=== PATIENT | male | born 1975 | race Caucasian/White ===

== ENCOUNTER 2018-03-13 14:56 | Inpatient (IN) | payer OTHER ==
--- NOTE | 2018-03-13 15:08 | PDOC ---
Rapid Medical Evaluation Time Seen by Provider: 03/13/18 15:02 Medical Evaluation: 03/13/18 15:05 I have performed a brief in-person evaluation of this patient. The patient presents with a chief complaint of: abdominal pain with vomiting x 2 days. Denies diarrhea at present Pertinent physical exam findings are: NAD even and unlabored breathing +right lower quadrant tenderness I have ordered the following: labs The patient will proceed o the Ed for further evaluation. Discharge Disposition - Referrals Referrals: Tung Whitlock MD [Primary Care Provider] - - Patient Instructions - Post Discharge Activity
--- NOTE | 2018-03-13 16:30 | PDOC ---
History of Present Illness - General Chief Complaint: Pain, Acute Stated Complaint: ABD PAIN/SENT BY PCP Time Seen by Provider: 03/13/18 15:02 History Source: Patient Exam Limitations: No Limitations - History of Present Illness Initial Comments: 03/13/18 16:30 CHIEF COMPLAINT: Abdominal pain HISTORY OF PRESENT ILLNESS: This is a 42-year-old male with NIDDM, HTN, and hypercholesterolemia who presents for evaluation of 2 days of abdominal pain. He reports that the pain has been constant and worsening. Today, he had 3 episodes of diarrhea. Denies nausea/vomiting, fevers/chills, dysuria, or any other symptoms. He was seen by his PCP today who sent him to the ED for further evaluation. Vital signs on arrival are notable only for pulse of 94. PCP: Dr. Whitlock REVIEW OF SYSTEMS: GENERAL/CONSTITUTIONAL: No fever or chills. No weakness. No weight change. HEAD, EYES, EARS, NOSE AND THROAT: No change in vision. No ear pain or discharge. No sore throat. CARDIOVASCULAR: No chest pain or palpitations. RESPIRATORY: No cough, wheezing, or shortness of breath. GASTROINTESTINAL: See HPI. GENITOURINARY: No dysuria, frequency, or change in urination. MUSCULOSKELETAL: No joint or muscle swelling or pain. No neck or back pain. SKIN: No rash or easy bruising. NEUROLOGIC: No headache, vertigo, loss of consciousness, or loss of sensation. PSYCHIATRIC: No depression or anxiety. ENDOCRINE: No increased thirst. No abnormal weight change. HEMATOLOGIC/LYMPHATIC: No anemia, easy bleeding, or history of blood clots. ALLERGIC/IMMUNOLOGIC: No hives or skin allergy. No latex allergy. PHYSICAL EXAM: GENERAL: The patient is awake, alert, and fully oriented, in no acute distress. HEAD: Normal with no signs of trauma. ENT: Pupils equal, round and reactive to light, extraocular movements intact, sclera anicteric, conjunctiva clear. Neck supple. LUNGS: Clear to auscultation bilaterally. Normal excursion. No respiratory distress or use of accessory muscles. CV: RRR, S1/S2, no MRG. Cap refill < 2 sec. ABDOMEN: Soft, non-distended, diffusely tender to palpation but exquisitely tender in RLQ. EXTREMITIES: Normal range of motion, no edema. NEUROLOGICAL: Normal speech, normal gait. CN II-XII grossly intact. PSYCH: Normal mood, normal affect. SKIN: Warm, moist, normal turgor, no rashes or lesions noted. Past History - Past Medical History Allergies/Adverse Reactions: Allergies Allergy/AdvReac Type Severity Reaction Status Date / Time No Known Allergies Allergy Verified 03/13/18 15:04 Home Medications: Ambulatory Orders Aspirin 81 mg PO DAILY 03/13/18 Atorvastatin Ca [Lipitor] 20 mg PO HS 03/13/18 Canagliflozin [Invokana] 300 mg PO ASDIR 03/13/18 Enalapril Maleate 2.5 mg PO DAILY 03/13/18 Metformin HCl [Metformin HCl ER] 1,000 mg PO BID 03/13/18 Pantoprazole Sodium [Protonix -] 40 mg PO DAILY 03/13/18 Sildenafil Citrate [Sildenafil] 20 mg PO ASDIR 03/13/18 Sitagliptin Phosphate [Januvia] 100 mg PO DAILY 03/13/18 COPD: No Diabetes: Yes HTN: Yes Hypercholesterolemia: Yes - Suicide/Smoking/Psychosocial Hx Smoking History: Current every day smoker Have you smoked in the past 12 months: Yes Information on smoking cessation initiated: No *Physical Exam - Vital Signs Last Vital Signs Temp Pulse Resp BP Pulse Ox 97.9 F 94 H 16 128/65 98 03/13/18 15:05 03/13/18 15:05 03/13/18 15:05 03/13/18 15:05 03/13/18 15:05 ED Treatment Course - LABORATORY CBC & Chemistry Diagram: 03/13/18 16:21 03/13/18 16:21 Medical Decision Making - Medical Decision Making 03/13/18 16:50 A/P: 42-year-old male with RLQ abdominal pain and diarrhea. -Labs including CBC, CMP, lipase, UA -Morphine 4mg IVP for pain -Zofran 4mg IVP -CTAP PO/IV contrast r/o appendicitis 03/13/18 16:53 WBC 11.0 03/13/18 18:01 Patient re-evaluated and still with significant pain. Will give additional 2mg morphine. CT @ 7pm. Will sign out to MECHE Arenas to follow up. *DC/Admit/Observation/Transfer - Referrals Referrals: Tung Whitlock MD [Primary Care Provider] - - Patient Instructions - Post Discharge Activity
[2018-03-13 16:35] LABS: BASO % 0.5 % (0-2.0); EOS % 1.7 % (0-4.5); HEMATOCRIT 51.4 % (35.4-49); HEMOGLOBIN 17.5 GM/dL (11.7-16.9); LYMPH % 14.3 % (8-40); MEAN PLT VOLUME 10.3 fl (7.5-11.1); MONO % 5.2 % (3.8-10.2); NEUT % 78.3 % (42.8-82.8); PLATELET COUNT 217 K/MM3 (134-434); RBC 5.65 M/mm3 (4.00-5.60)
[2018-03-13] MEDS ORDERED: ONDANSETRON 4 MG/2 ML VIAL IVPUSH ONE (16:37)
[2018-03-13] MEDS ORDERED: morphine CARPU-JECT 4 MG/1 ML DISP.SYRIN IVPUSH ONE (16:37)
[2018-03-13] MEDS ORDERED: ONDANSETRON 4 MG/2 ML VIAL ONE (16:43)
[2018-03-13] MEDS ORDERED: MORPHINE SULFATE 10 MG/1 ML *VIAL ONE (16:45)
[2018-03-13] MEDS: SODIUM CHLORIDE 1,000 ML IV SCH (16:47)
[2018-03-13 16:55] LABS: INR 1.05 (0.83-1.09); PROTHROMBIN TIME (PATIENT) 11.9 SEC (9.7-13.0)
[2018-03-13 16:58] LABS: ACTIVATED PTT 30.3 SECONDS (25.2-36.5)
[2018-03-13 17:04] LABS: ALBUMIN 4.1 g/dl (3.4-5.0); ALK PHOS 69 U/L (45-117); AMYLASE 87 U/L (25-115); ANION GAP 10 MMOL/L (8-16); BLOOD UREA NITROGEN 16 mg/dL (7-18); CALCIUM 9.1 mg/dL (8.5-10.1); CHLORIDE 105 mmol/L (98-107); CO2 23 mmol/L (21-32); CREATININE 0.6 mg/dL (0.7-1.3); GLUCOSE,RANDOM 133 mg/dL (74-106); POTASSIUM 4.4 mmol/L (3.5-5.1); SGOT/AST 10 U/L (15-37); SGPT/ALT 18 U/L (12-78); SODIUM 138 mmol/L (136-145); TOT PROT 8.1 g/dl (6.4-8.2)
[2018-03-13 17:10] LABS: LIPASE 344 U/L (73-393)
[2018-03-13] MEDS ORDERED: morphine CARPU-JECT 2 MG/1 ML DISP.SYRIN IVPUSH ONE (18:01)
[2018-03-13] MEDS ORDERED: MORPHINE SULFATE 2 MG/ML VIAL ONE (18:14)
[2018-03-13 18:30] LABS: URINE APPEARANCE CLEAR; URINE BILIRUBIN NEGATIVE (<2.0 mg/dL); URINE COLOR STRAW; URINE GLUCOSE (UA) 3+ (NEGATIVE); URINE KETONE NEGATIVE (NEGATIVE); URINE LEUK ESTERASE NEGATIVE (NEGATIVE); URINE NITRITE NEGATIVE (NEGATIVE); URINE PROTEIN NEGATIVE (NEGATIVE); URINE UROBILINOGEN NEGATIVE mg/dL (0.2-1.0)
--- NOTE | 2018-03-13 19:29 | PDOC ---
*Physical Exam - Vital Signs Last Vital Signs Temp Pulse Resp BP Pulse Ox 97.9 F 94 H 16 128/65 98 03/13/18 15:05 03/13/18 15:05 03/13/18 15:05 03/13/18 15:05 03/13/18 15:05 - Physical Exam Gastrointestinal/Abdominal: positive: Tender (diffusely tender worse in RLQ), Guarding (RLQ) ED Treatment Course - LABORATORY CBC & Chemistry Diagram: 03/13/18 16:21 03/13/18 16:21 - ADDITIONAL ORDERS Additional order review: Laboratory Results 03/13/18 03/13/18 03/13/18 18:13 16:21 16:21 PT with INR 11.90 INR 1.05 PTT (Actin FS) 30.3 Sodium 138 Potassium 4.4 Chloride 105 Carbon Dioxide 23 Anion Gap 10 BUN 16 Creatinine 0.6 L Creat Clearance w eGFR > 60 Random Glucose 133 H Calcium 9.1 Total Bilirubin 1.0 AST 10 L ALT 18 Alkaline Phosphatase 69 Total Protein 8.1 Albumin 4.1 Total Amylase 87 Lipase 344 Urine Color Straw Urine Appearance Clear Urine pH 5.0 Ur Specific Marshall 1.021 Urine Protein Negative Urine Glucose (UA) 3+ H Urine Ketones Negative Urine Blood Negative Urine Nitrite Negative Urine Bilirubin Negative Urine Urobilinogen Negative Ur Leukocyte Esterase Negative 03/13/18 16:21 RBC 5.65 H MCV 91.0 MCHC 34.0 RDW 13.0 MPV 10.3 Neutrophils % 78.3 Lymphocytes % 14.3 Monocytes % 5.2 Eosinophils % 1.7 Basophils % 0.5 - Medications Given in the ED: ED Medications Discontinued Medications Generic Name Dose Route Start Last Admin Trade Name Brianda PRN Reason Stop Dose Admin Morphine Sulfate 4 mg 03/13/18 16:37 03/13/18 16:47 Morphine Injection - IVPUSH 03/13/18 16:38 4 mg ONCE ONE Administration Morphine Sulfate 2 mg 03/13/18 18:01 03/13/18 18:15 Morphine Injection - IVPUSH 03/13/18 18:02 2 mg ONCE ONE Administration Ondansetron HCl 4 mg 03/13/18 16:37 03/13/18 16:47 Zofran Injection IVPUSH 03/13/18 16:38 4 mg ONCE ONE Administration Progress Note - Progress Note Progress Note: Received signout from Nurse Practitioner Zakiya. Briefly this is a 42-year-old male past history of NIDDM, hypertension and hyperlipidemia who presents emergency department 2 days of abdominal pain. Patient was seen by his PMD today and was sent to the emergency department for further evaluation. Laboratory testing significant for elevated WBC of 11,000. Patient is ordered for CTAP with by mouth and IV contrast to rule out appendicitis. Dispo pending results of CAT scan. Medical Decision Making - Medical Decision Making 03/13/18 20:01 CT of abdomen and pelvis as read by Dr. Dai: There is a thick walled tubular structure within the right lower quadrant consistent with an inflamed appendix. There is a mild degree of inflammatory stranding in the adjacent mesenteric fat. This consistent with acute appendicitis. No abscesses associated with this process. I paged Dr. Pedersen of surgery for consult. Blood cultures, ceftriaxone 1 g, Flagyl 500 mg. Admit to [facility]. Case discussed with Dr. Pedersen who will perform the surgery in the morning. Patient is nothing by mouth. Results discussed with patient who verbalizes understanding of need for nothing by mouth, hospitalization and IV antibiotics. 6 plan to the patient that Dr. Pedersen will visit the patient in the morning with the plan of performing surgery. Patient is in agreement with admission for IV antibiotic overnight and pending surgery. 03/13/18 20:11 Case d/w [employer] [facility] who accepts pt for admission under MD Ernst. *DC/Admit/Observation/Transfer Diagnosis at time of Disposition: Appendicitis Qualifiers: Appendicitis type: acute appendicitis Acute appendicitis type: unspecified acute appendicitis type Qualified Code(s): K35.80 - Unspecified acute appendicitis - Discharge Dispostion Condition at time of disposition: Fair Decision to Admit order: Yes - Referrals Referrals: Tung Whitlock MD [Primary Care Provider] - - Patient Instructions - Post Discharge Activity
[2018-03-13] MEDS ORDERED: CEFTRIAXONE 1,000 MG in DEXTROSE 5%-WATER - 50 ML IVPB ONE (19:55)
[2018-03-13] MEDS ORDERED: SODIUM CHLORIDE 1,000 ML IV SCH (20:15)
[2018-03-13] MEDS ORDERED: CEFTRIAXONE 1 GM/50 ML BAG ONE (20:19)
[2018-03-13] MEDS ORDERED: MORPHINE SULFATE 2 MG/ML VIAL IVPUSH PRN (20:43)
[2018-03-13] MEDS ORDERED: ONDANSETRON 4 MG/2 ML VIAL IVPUSH PRN (20:44)
[2018-03-13] MEDS ORDERED: DEXTROSE 5%-0.45% SALINE 1,000 ML IV SCH (20:45)
--- NOTE | 2018-03-13 20:51 | HP ---
CHIEF COMPLAINT: Abdominal Pain PCP: Dr. Whitlock HISTORY OF PRESENT ILLNESS: 42 y/o man with a pMHx of NIDDM, HTN, HLD. Who presents to the ED from his PMDs office for abdominal pain x 2days, with an episode of non-bilious vomiting x today. Patient endorses having generalized abdominal pain which became worse in intensity, he reports having soup earlier today and while at his doctor's office he had an episode of vomiting. Patient denies fever, chills, cough, dizziness, CP, palpitations diarrhea, heamtochezia, constipation, melena, dysuria. ER course was notable for: (1) CTAP- acute appendicitis (2) WBC 11.0 (3) Recent Travel: None PAST MEDICAL HISTORY: See HPI PAST SURGICAL HISTORY: None Social History: Smoking: None Alcohol: None Drugs: None Lives with family Family History: Father: DM Allergies No Known Allergies Allergy (Verified 03/13/18 15:04) HOME MEDICATIONS: Home Medications Medication Instructions Recorded Aspirin 81 mg PO DAILY 03/13/18 Atorvastatin Ca [Lipitor] 20 mg PO HS 03/13/18 Canagliflozin [Invokana] 300 mg PO ASDIR 03/13/18 Enalapril Maleate 2.5 mg PO DAILY 03/13/18 Metformin HCl [Metformin HCl ER] 1,000 mg PO BID 03/13/18 Pantoprazole Sodium [Protonix -] 40 mg PO DAILY 03/13/18 Sildenafil Citrate [Sildenafil] 20 mg PO ASDIR 03/13/18 Sitagliptin Phosphate [Januvia] 100 mg PO DAILY 03/13/18 REVIEW OF SYSTEMS CONSTITUTIONAL: loss of appetite Absent: fever, chills, diaphoresis, generalized weakness, malaise, weight change HEENT: Absent: rhinorrhea, nasal congestion, throat pain, throat swelling, difficulty swallowing, mouth swelling, ear pain, eye pain, visual changes CARDIOVASCULAR: Absent: chest pain, syncope, palpitations, irregular heart rate, lightheadedness , peripheral edema RESPIRATORY: Absent: cough, shortness of breath, dyspnea with exertion, orthopnea, wheezing, stridor, hemoptysis GASTROINTESTINAL: abdominal pain, nausea, vomiting Absent: abdominal distension, diarrhea, constipation, melena, hematochezia GENITOURINARY: Absent: dysuria, frequency, urgency, hesitancy, hematuria, flank pain, genital pain MUSCULOSKELETAL: Absent: myalgia, arthralgia, joint swelling, back pain, neck pain SKIN: Absent: rash, itching, pallor HEMATOLOGIC/IMMUNOLOGIC: Absent: easy bleeding, easy bruising, lymphadenopathy, frequent infections ENDOCRINE: Absent: unexplained weight gain, unexplained weight loss, heat intolerance, cold intolerance NEUROLOGIC: Absent: headache, focal weakness or paresthesias, dizziness, unsteady gait, seizure, mental status changes, bladder or bowel incontinence PSYCHIATRIC: Absent: anxiety, depression, suicidal or homicidal ideation, hallucinations. PHYSICAL EXAMINATION Vital Signs - 24 hr 03/13/18 15:05 Temperature 97.9 F Pulse Rate 94 H Respiratory 16 Rate Blood Pressure 128/65 O2 Sat by Pulse 98 Oximetry (%) GENERAL: Awake, alert, and fully oriented, in no acute distress. HEAD: Normal with no signs of trauma. EYES: Pupils equal, round and reactive to light, extraocular movements intact, sclera anicteric, conjunctiva clear. No lid lag. EARS, NOSE, THROAT: Ears normal, nares patent, oropharynx clear without exudates. Dry mucous membranes. NECK: Normal range of motion, supple without lymphadenopathy, JVD, or masses. LUNGS: Breath sounds equal, clear to auscultation bilaterally. No wheezes, and no crackles. No accessory muscle use. HEART: Regular rate and rhythm, normal S1 and S2 without murmur, rub or gallop. ABDOMEN: Soft, not distended, no guarding, no masses. No hepatomegaly or splenomegaly. generalized tenderness, hypoactive bowel sounds, rebound tenderness MUSCULOSKELETAL: Normal range of motion at all joints. No bony deformities or tenderness. No CVA tenderness. UPPER EXTREMITIES: 2+ pulses, warm, well-perfused. No cyanosis. No clubbing. No peripheral edema. LOWER EXTREMITIES: 2+ pulses, warm, well-perfused. No calf tenderness. No peripheral edema. NEUROLOGICAL: Cranial nerves II-XII intact. Normal speech. Gait not observed PSYCHIATRIC: Cooperative. Good eye contact. Appropriate mood and affect. SKIN: Warm, dry, normal turgor, no rashes or lesions noted, normal capillary refill. Laboratory Results - last 24 hr 03/13/18 03/13/18 03/13/18 16:21 16:21 16:21 WBC 11.0 H RBC 5.65 H Hgb 17.5 H Hct 51.4 H MCV 91.0 MCH 31.0 MCHC 34.0 RDW 13.0 Plt Count 217 MPV 10.3 Absolute Neuts (auto) 8.7 H Neutrophils % 78.3 Lymphocytes % 14.3 Monocytes % 5.2 Eosinophils % 1.7 Basophils % 0.5 Nucleated RBC % 0 PT with INR 11.90 INR 1.05 PTT (Actin FS) 30.3 Sodium 138 Potassium 4.4 Chloride 105 Carbon Dioxide 23 Anion Gap 10 BUN 16 Creatinine 0.6 L Creat Clearance w eGFR > 60 Random Glucose 133 H Calcium 9.1 Total Bilirubin 1.0 AST 10 L ALT 18 Alkaline Phosphatase 69 Total Protein 8.1 Albumin 4.1 Total Amylase 87 Lipase 344 Urine Color Urine Appearance Urine pH Ur Specific [place] Urine Protein Urine Glucose (UA) Urine Ketones Urine Blood Urine Nitrite Urine Bilirubin Urine Urobilinogen Ur Leukocyte Esterase 03/13/18 18:13 WBC RBC Hgb Hct MCV MCH MCHC RDW Plt Count MPV Absolute Neuts (auto) Neutrophils % Lymphocytes % Monocytes % Eosinophils % Basophils % Nucleated RBC % PT with INR INR PTT (Actin FS) Sodium Potassium Chloride Carbon Dioxide Anion Gap BUN Creatinine Creat Clearance w eGFR Random Glucose Calcium Total Bilirubin AST ALT Alkaline Phosphatase Total Protein Albumin Total Amylase Lipase Urine Color Straw Urine Appearance Clear Urine pH 5.0 Ur Specific [place] 1.021 Urine Protein Negative Urine Glucose (UA) 3+ H Urine Ketones Negative Urine Blood Negative Urine Nitrite Negative Urine Bilirubin Negative Urine Urobilinogen Negative Ur Leukocyte Esterase Negative ASSESSMENT/PLAN: This is a 42 y/o man Admitted for Acute Appendicitis for further evaluation of their emergent condition. FEN - D51/2NS@100ml/hr - Replete lytes prn - NPO DVT ppx - OOB - SCDs Code Status: Full Code Dispo: Requires Inpatient Care Problem List - Problem (1) Appendicitis Assessment/Plan: - CTAP- Acute Appendicitis - +Luekocytosis - Appreciate Surgical consult-[facility] OR in am - Ceftriaxone/Metronidazole given in ED, will continue - NPO - Repeat CBC, BMP in am - IVF - Pain Mgmt- Morphine Sulfate prn - Zofran prn - Monitor vitals Code(s): K37 - UNSPECIFIED APPENDICITIS Qualifiers: Appendicitis type: acute appendicitis Acute appendicitis type: unspecified acute appendicitis type Qualified Code(s): K35.80 - Unspecified acute appendicitis (2) Diabetes mellitus Assessment/Plan: - stable - BGMs - Hold home meds- surgery tomorrow Code(s): E11.9 - TYPE 2 DIABETES MELLITUS WITHOUT COMPLICATIONS (3) Hypertension Assessment/Plan: - stable - Monitor BP - Hold meds tonight Code(s): I10 - ESSENTIAL (PRIMARY) HYPERTENSION (4) HLD (hyperlipidemia) Assessment/Plan: - Hold med tonight - Will resume when cleared by surgeon Code(s): E78.5 - HYPERLIPIDEMIA, UNSPECIFIED Visit type - Emergency Visit Emergency Visit: Yes ED Registration Date: 03/13/18 Care time: The patient presented to the Emergency Department on the above date and was hospitalized for further evaluation of their emergent condition. - New Patient This patient is new to me today: Yes Date on this admission: 03/13/18 - Critical Care Critical Care patient: No Hospitalist Screening - Colonoscopy Questionnaire Colonoscopy Questionnaire: Colonoscopy Questionnaire - Patient: 50 - 75 years old and never had a screening colonoscopy: No History of colon or rectal polyps, or CA: No History of IBD, Crohn's disease or UC: No History of abdominal radiation therapy as a child: No - Relative: 1 with colon or rectal CA, or polyps at age 60 or younger: No Colon or rectal CA diagnosed at age 45 or younger: No Multiple relatives with colon or rectal CA: No - Outcome: Screening Result: Negative Screen
--- NOTE | 2018-03-13 21:17 | CONSULT ---
Consult Consult Specialty:: Surgery Referred by:: Kamlesh Reason for Consultation:: Abdominal pain - History of Present Illness History of Present Illness: C/O Abdominal pain x 2days, with nausea, vomitind and diarrhea. Pain is exacerbated in the right lower quadrant. - History Source History Provided By: Patient - Smoking History Smoking history: Current every day smoker Have you smoked in the past 12 months: Yes Home Medications - Allergies Allergies/Adverse Reactions: Allergies Allergy/AdvReac Type Severity Reaction Status Date / Time No Known Allergies Allergy Verified 03/13/18 15:04 - Home Medications Home Medications: Ambulatory Orders Aspirin 81 mg PO DAILY 03/13/18 Atorvastatin Ca [Lipitor] 20 mg PO HS 03/13/18 Canagliflozin [Invokana] 300 mg PO ASDIR 03/13/18 Enalapril Maleate 2.5 mg PO DAILY 03/13/18 Metformin HCl [Metformin HCl ER] 1,000 mg PO BID 03/13/18 Pantoprazole Sodium [Protonix -] 40 mg PO DAILY 03/13/18 Sildenafil Citrate [Sildenafil] 20 mg PO ASDIR 03/13/18 Sitagliptin Phosphate [Januvia] 100 mg PO DAILY 03/13/18 Physical Exam Vital Signs: Vital Signs Temperature 97.9 F 03/13/18 15:05 Pulse Rate 94 H 03/13/18 15:05 Respiratory Rate 16 03/13/18 15:05 Blood Pressure 128/65 03/13/18 15:05 O2 Sat by Pulse Oximetry (%) 98 03/13/18 15:05 Gastrointestinal: Yes: Tenderness (Tender in right lower quadrant of abdomenm) Labs: CBC, BMP 03/13/18 16:21 03/13/18 16:21 Imaging - Results Cat Scan: Report Reviewed, Image Reviewed Problem List - Problems (1) Acute appendicitis Code(s): K35.80 - UNSPECIFIED ACUTE APPENDICITIS (2) Diabetes mellitus type 2 in obese Code(s): E11.69 - TYPE 2 DIABETES MELLITUS WITH OTHER SPECIFIED COMPLICATION; E66.9 - OBESITY, UNSPECIFIED (3) Hypertension Code(s): I10 - ESSENTIAL (PRIMARY) HYPERTENSION Assessment/Plan Acute appendicitis. Antibiotics, Hydrate, IV fluids, Plan : appendectomy
[2018-03-14 01:07] VITALS: BMI 23.1
[2018-03-14] MEDS ORDERED: PNEUMOC 13-VAL CONJ-DIP CRM/PF 0.5 ML DISP.SYRIN IM ONE (01:07)
[2018-03-14] MEDS: SODIUM CHLORIDE 1,000 ML IV SCH (02:33)
--- NOTE | 2018-03-14 07:39 | PN ---
Progress Note, Physician - Current Medication List Current Medications: Active Medications Sodium Chloride (Normal Saline -) 1,000 mls @ 125 mls/hr IV ASDIR JEFF Last Admin: 03/14/18 02:33 Dose: 125 mls/hr Sodium Chloride (Normal Saline -) 1,000 mls @ 100 mls/hr IV ASDIR JEFF Last Admin: 03/13/18 20:30 Dose: 100 mls/hr Ceftriaxone Sodium 1 gm/ (Dextrose) 50 mls @ 100 mls/hr IVPB DAILY JEFF; Protocol Metronidazole (Flagyl 500mg Premixed Ivpb -) 500 mg in 100 mls @ 100 mls/hr IVPB Q8H-IV JEFF Last Admin: 03/14/18 02:32 Dose: 100 mls/hr Dextrose/Sodium Chloride (D5-1/2ns -) 1,000 mls @ 100 mls/hr IV ASDIR JEFF Last Admin: 03/13/18 21:15 Dose: 100 mls/hr Morphine Sulfate (Morphine Sulfate) 2 mg IVPUSH Q4H PRN PRN Reason: PAIN LEVEL 7 - 10 Ondansetron HCl (Zofran Injection) 4 mg IVPUSH Q6H PRN PRN Reason: NAUSEA Pneumococcal Polyvalent Vaccine (Pneumovax -) 0.5 ml IM .ONCE ONE Stop: 03/14/18 10:01 - Objective Vital Signs: Vital Signs Temperature 98.1 F 03/14/18 06:14 Pulse Rate 72 03/14/18 06:14 Respiratory Rate 20 03/14/18 06:14 Blood Pressure 103/65 03/14/18 06:14 O2 Sat by Pulse Oximetry (%) 98 03/14/18 00:06 Labs: CBC, BMP 03/13/18 16:21 03/13/18 16:21 INR, PTT INR 1.05 (0.83-1.09) 03/13/18 16:21 Problem List - Problems (1) Acute appendicitis Code(s): K35.80 - UNSPECIFIED ACUTE APPENDICITIS (2) Diabetes mellitus type 2 in obese Code(s): E11.69 - TYPE 2 DIABETES MELLITUS WITH OTHER SPECIFIED COMPLICATION; E66.9 - OBESITY, UNSPECIFIED (3) Hypertension Code(s): I10 - ESSENTIAL (PRIMARY) HYPERTENSION
[2018-03-14 07:47] LABS: BASO % 0.5 % (0-2.0); EOS % 5.3 % (0-4.5); HEMATOCRIT 45.6 % (35.4-49); HEMOGLOBIN 15.4 GM/dL (11.7-16.9); LYMPH % 38.2 % (8-40); MCH 30.7 pg (25.7-33.7); MCHC 33.7 g/dl (32.0-35.9); MEAN PLT VOLUME 10.3 fl (7.5-11.1); MONO % 5.8 % (3.8-10.2); NEUT % 50.2 % (42.8-82.8); PLATELET COUNT 187 K/MM3 (134-434); RBC 5.01 M/mm3 (4.00-5.60); RDW 13.1 % (11.9-15.9); WHITE BLOOD COUNT 6.8 K/mm3 (4.0-10.0)
--- NOTE | 2018-03-14 08:31 | PN ---
Progress Note, Physician Chief Complaint: AWAKE ALERT TRANSFERRING TO O.R. MODERATE DISTRESS - Current Medication List Current Medications: Active Medications Sodium Chloride (Normal Saline -) 1,000 mls @ 125 mls/hr IV ASDIR JEFF Last Admin: 03/14/18 02:33 Dose: 125 mls/hr Sodium Chloride (Normal Saline -) 1,000 mls @ 100 mls/hr IV ASDIR JEFF Last Admin: 03/13/18 20:30 Dose: 100 mls/hr Ceftriaxone Sodium 1 gm/ (Dextrose) 50 mls @ 100 mls/hr IVPB DAILY JEFF; Protocol Metronidazole (Flagyl 500mg Premixed Ivpb -) 500 mg in 100 mls @ 100 mls/hr IVPB Q8H-IV JEFF Last Admin: 03/14/18 02:32 Dose: 100 mls/hr Dextrose/Sodium Chloride (D5-1/2ns -) 1,000 mls @ 100 mls/hr IV ASDIR JEFF Last Admin: 03/13/18 21:15 Dose: 100 mls/hr Morphine Sulfate (Morphine Sulfate) 2 mg IVPUSH Q4H PRN PRN Reason: PAIN LEVEL 7 - 10 Ondansetron HCl (Zofran Injection) 4 mg IVPUSH Q6H PRN PRN Reason: NAUSEA Pneumococcal Polyvalent Vaccine (Pneumovax -) 0.5 ml IM .ONCE ONE Stop: 03/14/18 10:01 - Objective Vital Signs: Vital Signs Temperature 98.1 F 03/14/18 06:14 Pulse Rate 72 03/14/18 06:14 Respiratory Rate 20 03/14/18 06:14 Blood Pressure 103/65 03/14/18 06:14 O2 Sat by Pulse Oximetry (%) 98 03/14/18 00:06 Constitutional: Yes: Moderate Distress Eyes: Yes: WNL HENT: Yes: WNL Neck: Yes: WNL Cardiovascular: Yes: WNL Respiratory: Yes: WNL Gastrointestinal: Yes: WNL Genitourinary: Yes: WNL Musculoskeletal: Yes: WNL Extremities: Yes: WNL Edema: No Peripheral Pulses WNL: Yes Integumentary: Yes: WNL Wound/Incision: Yes: Clean/Dry Neurological: Yes: WNL ...Motor Strength: WNL Psychiatric: Yes: WNL Labs: CBC, BMP 03/14/18 07:20 INR, PTT INR 1.05 (0.83-1.09) 03/13/18 16:21 Problem List - Problems (1) Acute appendicitis Code(s): K35.80 - UNSPECIFIED ACUTE APPENDICITIS (2) Diabetes mellitus Code(s): E11.9 - TYPE 2 DIABETES MELLITUS WITHOUT COMPLICATIONS (3) HLD (hyperlipidemia) Code(s): E78.5 - HYPERLIPIDEMIA, UNSPECIFIED (4) Hypertension Code(s): I10 - ESSENTIAL (PRIMARY) HYPERTENSION Assessment/Plan IV ABX SURGERY EVAL TO O.R. LAPROSCOPIC APPENDECTOMY INCENTIVE SPIROMETRY OOB TO CHAIR CLEAR DIET DC PLANNING TOMORROW
[2018-03-14 08:38] LABS: ANION GAP 9 MMOL/L (8-16); BLOOD UREA NITROGEN 10 mg/dL (7-18); CALCIUM 8.1 mg/dL (8.5-10.1); CHLORIDE 107 mmol/L (98-107); CO2 23 mmol/L (21-32); CREATININE 0.7 mg/dL (0.7-1.3); GLUCOSE,RANDOM 98 mg/dL (74-106); POTASSIUM 3.9 mmol/L (3.5-5.1); SODIUM 139 mmol/L (136-145)
[2018-03-14] MEDS ORDERED: DEXTROSE 5%-WATER - 1,000 ML IV SCH ×2 (08:45→11:34)
--- NOTE | 2018-03-14 09:09 | EKG ---
Test Reason : Blood Pressure : / mmHG Vent. Rate : 069 BPM Atrial Rate : 069 BPM P-R Int : 168 ms QRS Dur : 086 ms QT Int : 404 ms P-R-T Axes : 038 066 041 degrees QTc Int : 432 ms NORMAL SINUS RHYTHM NO PREVIOUS ECGS AVAILABLE Confirmed by KIRK LEDEZMA MD ([id number]) on 03/14/2018 9:09:02 AM Referred By: Confirmed By:KIRK LEDEZMA MD
[2018-03-14] MEDS ORDERED: DEXTROSE 5%-WATER - 50 ML IVPB ONE (09:13)
[2018-03-14] MEDS ORDERED: cefTRIAXone SODIUM 1 GM VIAL ONE (09:13)
[2018-03-14] MEDS ORDERED: MIDAZOLAM HCL 2 MG/2 ML SINGLE DOSE VIAL ONE (09:16)
[2018-03-14] MEDS ORDERED: BUPIVACAINE HCL/PF 0.5% (5MG/ML) 10 ML VIAL ONE (09:19)
[2018-03-14] MEDS ORDERED: DEXAMETHASONE SOD PHOSPHATE 4 MG/1 ML VIAL ONE (09:35)
[2018-03-14] MEDS ORDERED: PROPOFOL 20 ML ONE (09:38)
[2018-03-14] MEDS ORDERED: LIDOCAINE HCL/PF 2% SDV 5ML VIAL ONE (09:38)
[2018-03-14] MEDS ORDERED: ROCURONIUM BROMIDE 50 MG/5 ML VIAL ONE (09:39)
[2018-03-14] MEDS ORDERED: PNEUMOCOCCAL 23 VACCINE 0.5 ML VIAL IM ONE (10:00)
[2018-03-14] MEDS ORDERED: CEFTRIAXONE 1 GM in DEXTROSE 5%-WATER - 50 ML IVPB SCH (10:00)
[2018-03-14] MEDS ORDERED: BUPIVACAINE HCL/PF (5 MG/ML) 30 ML VIAL IJ ONE (10:00)
[2018-03-14] MEDS ORDERED: GLYCOPYRROLATE 0.2 MG/1 ML VIAL ONE (10:14)
[2018-03-14] MEDS ORDERED: NEOSTIGMINE METHYLSULFATE 0.5 MG/ML - 10 ML MDV ONE (10:14)
--- NOTE | 2018-03-14 10:27 | OP ---
Operative Note - Note: Operative Date: 03/14/18 Pre-Operative Diagnosis: Acute appendicitis Operation: laparoscopy , laproscopic appendectomy. Post-Operative Diagnosis: Same as Pre-op Surgeon: Skinny Pedersen Anesthesiologist/RECENTERER: Julián Guevara Anesthesia: General Specimens Removed: appendix Estimated Blood Loss (mls): 5 Operative Report Dictated: Yes
[2018-03-14] MEDS ORDERED: ONDANSETRON 4 MG/2 ML VIAL IVPUSH PRN (11:34)
--- NOTE | 2018-03-14 11:36 | OP ---
DATE OF OPERATION: 03/14/2018 PREOPERATIVE DIAGNOSIS: Acute appendicitis. POSTOPERATIVE DIAGNOSIS: Acute appendicitis. OPERATIVE PROCEDURE: Laparoscopic appendectomy. SURGEON: Kory Pedersen MD ANESTHESIA: General anesthesia. ANESTHESIOLOGIST: Julián Guevara MD OPERATIVE DESCRIPTION: This 42-year-old man was admitted with right lower quadrant abdominal pain for 1 day, nausea and vomiting. Patient was diagnosed with acute appendicitis extending in the right lower quadrant of the abdomen. CAT scan suggestive for acute appendicitis. Patient was informed of the diagnosis and consent was obtained for laparoscopic appendectomy. Risks, benefits, and complications have been discussed with the patient. Patient was brought to the operating room. General anesthesia was administered. A Emanuel catheter was placed in the bladder which was removed right after the surgery. Timeout was called. Patient had been on antibiotics. The abdomen was painted and draped. Incision was made in the infraumbilical portion of the umbilicus which was deepened through the skin, subcutaneous tissue, and the linea alba. Two stay sutures of 2-0 Vicryl were placed on either side of the midline. A 10-12 mm laparoscopic trocar was introduced into abdominal cavity. This was anchored with 2-0 Vicryl. Abdomen was then filled with carbon dioxide at 6 L per minute. At maximum intraabdominal pressure at 15 mmHg , a 5-mm camera was introduced into the abdominal cavity. Under direct vision, another 5-mm trocar was inserted in the midline and suprapubic area. This was noted entering the abdominal cavity under direct vision with the camera. A third trocar 5-mm was inserted through the right upper quadrant of the abdomen after making a small incision. Abdomen was then inspected. The terminal ileum and bowel was normal. There was no pus in the abdominal cavity. The cecum was visualized and distracted anteriorly thus exposing the appendix. The appendix was inflamed . There was no exudate on the surface. The appendix was grasped with the grasper through the right upper quadrant port and retracted anteriorly and cephalad thus exposing the mesoappendix as well as the base of the appendix. The mesoappendix was then divided using the harmonic scalpel through the umbilical port. The camera being switched to the suprapubic port. The mesoappendix was then divided all the way to the base of the appendix. The base of the appendix was visualized. An Endo DELIA was introduced through the umbilical port, and this was fired across the base of the appendix. Staple line was complete. There was no bleeding from the mesoappendix or base of the appendix. The appendix was then placed in the EndoCatch and retrieved out of the abdominal cavity. There was no bleeding or exudate. The terminal ileum and cecum were normal. The instruments were then withdrawn under direct vision. The linea alba in the midline was approximated with interrupted and [id number] 2-0 Vicryl sutures. There was no air leaking after closure of the umbilical port. The instruments were withdrawn. The abdomen was deflated. Marcaine 0.5% was injected into the wound. The skin was approximated with buried, interrupted 4-0 Monocryl sutures. Dermabond was applied across the skin edges. Patient tolerated the procedure well, was extubated, and returned to the recovery room in satisfactory and stable condition. Emanuel catheter was placed in the bladder just before surgery and removed after completion of the surgery. ESTIMATED BLOOD LOSS: Less than 5 mL. Harley [id number] MTDD
[2018-03-14] MEDS ORDERED: LACTATED RINGERS SOLUTION 1,000 ML IV SCH (12:45)
[2018-03-14] MEDS: MORPHINE SULFATE 2 MG/ML VIAL IVPUSH PRN ×2 (13:01→21:42)
[2018-03-14] MEDS: INSULIN SLIDING SCALE (NOVOLOG) 1 VIAL SQ SCH ×2 (17:35→21:44)
[2018-03-15] MEDS: MORPHINE SULFATE 2 MG/ML VIAL IVPUSH PRN (03:26)
[2018-03-15] MEDS ORDERED: SIMETHICONE 80 MG TAB.CHEW (FP) PO ONE (05:30)
[2018-03-15 05:42] VITALS: PULSE 66
[2018-03-15] MEDS: INSULIN SLIDING SCALE (NOVOLOG) 1 VIAL SQ SCH ×2 (06:22→12:28)
[2018-03-15 07:59] LABS: HEMATOCRIT 42.8 % (35.4-49); HEMOGLOBIN 14.6 GM/dL (11.7-16.9); MCH 30.8 pg (25.7-33.7); MCHC 34.1 g/dl (32.0-35.9); MEAN CELL VOLUME 90.3 fl (80-96); MEAN PLT VOLUME 10.9 fl (7.5-11.1); PLATELET COUNT 199 K/MM3 (134-434); RBC 4.74 M/mm3 (4.00-5.60); RDW 12.9 % (11.9-15.9); WHITE BLOOD COUNT 7.9 K/mm3 (4.0-10.0)
[2018-03-15 08:28] LABS: ANION GAP 10 MMOL/L (8-16); BLOOD UREA NITROGEN 13 mg/dL (7-18); CALCIUM 8.6 mg/dL (8.5-10.1); CHLORIDE 104 mmol/L (98-107); CO2 24 mmol/L (21-32); CREATININE 0.8 mg/dL (0.7-1.3); GLUCOSE,RANDOM 176 mg/dL (74-106); POTASSIUM 4.1 mmol/L (3.5-5.1); SODIUM 138 mmol/L (136-145)
[2018-03-15] MEDS ORDERED: cefTRIAXone SODIUM 1 GM VIAL ONE (08:44)
[2018-03-15] MEDS ORDERED: DEXTROSE 5%-WATER - 50 ML IVPB ONE (08:44)
[2018-03-15] MEDS ORDERED: PNEUMOCOCCAL 23 VACCINE 0.5 ML VIAL IM ONE (09:00)
[2018-03-15 09:02] VITALS: BP 131/73; TEMP 99.1
[2018-03-15] MEDS ORDERED: CEFTRIAXONE 1 GM in DEXTROSE 5%-WATER - 50 ML IVPB SCH (10:00)
[2018-03-15] MEDS ORDERED: SIMETHICONE 80 MG TAB.CHEW (FP) PO PRN (10:54)
--- NOTE | 2018-03-15 13:23 | PN ---
Progress Note, Physician - Current Medication List Current Medications: Active Medications Ceftriaxone Sodium 1 gm/ (Dextrose) 50 mls @ 100 mls/hr IVPB DAILY [facility]; Protocol Last Admin: 03/15/18 10:35 Dose: 100 mls/hr Metronidazole (Flagyl 500mg Premixed Ivpb -) 500 mg in 100 mls @ 100 mls/hr IVPB Q8H-IV JEFF Last Admin: 03/15/18 09:08 Dose: 100 mls/hr Insulin Aspart (Novolog Vial Sliding Scale -) 1 vial SQ ACHS JEFF; Protocol Last Admin: 03/15/18 12:28 Dose: 2 units Morphine Sulfate (Morphine Sulfate) 2 mg IVPUSH Q4H PRN PRN Reason: PAIN LEVEL 7 - 10 Last Admin: 03/15/18 03:26 Dose: 2 mg Ondansetron HCl (Zofran Injection) 4 mg IVPUSH Q6H PRN PRN Reason: NAUSEA Simethicone (Mylicon -) 80 mg PO Q4H PRN PRN Reason: PAIN Last Admin: 03/15/18 11:08 Dose: 80 mg - Objective Vital Signs: Vital Signs Temperature 99.1 F 03/15/18 09:02 Pulse Rate 66 03/15/18 09:02 Respiratory Rate 16 03/15/18 09:02 Blood Pressure 131/73 03/15/18 09:02 O2 Sat by Pulse Oximetry (%) 99 03/14/18 21:00 Labs: CBC, BMP 03/15/18 07:00 03/15/18 07:00 INR, PTT INR 1.05 (0.83-1.09) 03/13/18 16:21 Problem List - Problems (1) Abdominal distension Assessment/Plan: -XRAY -SURGICAL F/U -MYLICON Code(s): R14.0 - ABDOMINAL DISTENSION (GASEOUS) (2) Acute appendicitis Assessment/Plan: Operative Date: 03/14/18 Pre-Operative Diagnosis: Acute appendicitis Operation: laparoscopy , laproscopic appendectomy. Post-Operative Diagnosis: Same as Pre-op Surgeon: Skinny Pedersen Code(s): K35.80 - UNSPECIFIED ACUTE APPENDICITIS (3) Diabetes mellitus Assessment/Plan: -BGM Code(s): E11.9 - TYPE 2 DIABETES MELLITUS WITHOUT COMPLICATIONS (4) Hypertension Assessment/Plan: Vital Signs Period Temp Pulse Resp BP Sys/Hernandez Pulse Ox Last 24 Hr 98.2 F-99.1 F 66-95 16-20 107-131/66-79 99 Code(s): I10 - ESSENTIAL (PRIMARY) HYPERTENSION
--- NOTE | 2018-03-15 13:47 | PN ---
Progress Note, Physician - Current Medication List Current Medications: Active Medications Ceftriaxone Sodium 1 gm/ (Dextrose) 50 mls @ 100 mls/hr IVPB DAILY [facility]; Protocol Last Admin: 03/15/18 10:35 Dose: 100 mls/hr Metronidazole (Flagyl 500mg Premixed Ivpb -) 500 mg in 100 mls @ 100 mls/hr IVPB Q8H-IV JEFF Last Admin: 03/15/18 09:08 Dose: 100 mls/hr Insulin Aspart (Novolog Vial Sliding Scale -) 1 vial SQ ACHS JEFF; Protocol Last Admin: 03/15/18 12:28 Dose: 2 units Morphine Sulfate (Morphine Sulfate) 2 mg IVPUSH Q4H PRN PRN Reason: PAIN LEVEL 7 - 10 Last Admin: 03/15/18 03:26 Dose: 2 mg Ondansetron HCl (Zofran Injection) 4 mg IVPUSH Q6H PRN PRN Reason: NAUSEA Simethicone (Mylicon -) 80 mg PO Q4H PRN PRN Reason: PAIN Last Admin: 03/15/18 11:08 Dose: 80 mg - Objective Vital Signs: Vital Signs Temperature 99.1 F 03/15/18 09:02 Pulse Rate 66 03/15/18 09:02 Respiratory Rate 16 03/15/18 09:02 Blood Pressure 131/73 03/15/18 09:02 O2 Sat by Pulse Oximetry (%) 99 03/14/18 21:00 Labs: CBC, BMP 03/15/18 07:00 03/15/18 07:00 INR, PTT INR 1.05 (0.83-1.09) 03/13/18 16:21 Problem List - Problems (1) Acute appendicitis Code(s): K35.80 - UNSPECIFIED ACUTE APPENDICITIS (2) Diabetes mellitus type 2 in obese Code(s): E11.69 - TYPE 2 DIABETES MELLITUS WITH OTHER SPECIFIED COMPLICATION; E66.9 - OBESITY, UNSPECIFIED (3) Hypertension Code(s): I10 - ESSENTIAL (PRIMARY) HYPERTENSION Assessment/Plan Surgery: Patient is afebrile, out of bed. He is tolerating diet. Discharge home, ' Motrin for pain. Follow up in my office on Saturday at 4.30pm May shower daily.
--- NOTE | 2018-03-15 17:02 | PN ---
Progress Note (short form) - Note Progress Note: Anesthesia post op note, POD#1 S/P lap appendectomy. VSS. No apparent post anesthesia complications. Signed off.
--- NOTE | 2018-03-17 16:42 | PATH ---
Surgical Pathology Report Patient Name: ALAN ALMEIDA [facility]. Rec. #: [id number] /Age/Gender: 1975 (Age: 42) / M Account: [id number] Location: [facility] MED/SURG Taken: 03/14/2018 Received: 03/14/2018 Reported: 03/17/2018 Physicians: Tung Whitlock M.D. Specimen(s) Received APPENDIX Clinical History Appendicitis Final Diagnosis APPENDIX, LAPAROSCOPIC APPENDECTOMY: ACUTE APPENDICITIS AND PERIAPPENDICITIS. Electronically Signed Marylu Brito M.D. Gross Description Received in formalin, labeled "appendix," is a 4 cm. in length vermiform appendix with a stapled margin of resection and moderate attached fat. The serosa is ozuna-pink with attached exudate. Sectioning reveals a focally hemorrhagic lumen. The wall of the appendix averages 0.1 cm. in thickness. Pharmacy Coordinator sections are submitted in one cassette. /03/14/2018 saudi03/14/2018
== END 2018-03-15 15:05 | disposition home or self-care (01) | DRG 225 ==
LOC: JER 14:56 → JERBED 20:13 → J8W 03-14 00:11
PROVIDERS: ADMIT Internal Medicine; ATTEND Family Medicine
PROC: 0DTJ4ZZ Resection of Appendix, Percutaneous Endoscopic Approach (ICD-10-PCS; principal; 2018-03-14 09:30)
DX: K35.80 Unspecified acute appendicitis (principal); I10 Essential (primary) hypertension; E11.9 Type 2 diabetes mellitus without complications; E78.5 Hyperlipidemia, unspecified; F17.210 Nicotine dependence, cigarettes, uncomplicated; D72.829 Elevated white blood cell count, unspecified
CPT/HCPCS: 36415; 71045-TC-FY; 74019-TC-FY; 74177-TC; 80048; 80053; 81003; 82150; 82962; 83690; 85025; 85027; 85610; 85730; 87040; 88304-TC; 90732; 93005; 93010; 94010; 94760; 99284-25; G0009; J7030